=== PATIENT | male | born 1960 | race Caucasian/White ===

== ENCOUNTER 2017-10-21 19:16 | Emergency (ER) | payer SELFPAY ==
[2017-10-21] MEDS ORDERED: SODIUM CHLORIDE 0.9% (FLUSH) 10 ML SYG IV PRN (19:36)
[2017-10-21] MEDS ORDERED: ASPIRIN TABLET 325 MG TAB PO ONE (19:36)
[2017-10-21] MEDS: NITROGLYCERIN 0.4 MG 25 EA TAB SL ONE ×2 (19:40→19:45)
[2017-10-21] MEDS ORDERED: SODIUM CHLORIDE 0.9% 1000ML 1,000 ML ONE (19:51)
[2017-10-21] MEDS ORDERED: SODIUM CHLORIDE 0.9% 1000ML 1,000 ML IVS ONE (19:53)
--- NOTE | 2017-10-21 20:00 | RAD ---
EXAM DESCRIPTION: Chest,1 View CLINICAL HISTORY:57 years Male, chest pain Comparison: None FINDINGS: No focal lung consolidation. No pleural effusion. No pneumothorax. Cardiac and mediastinal silhouette is unremarkable. No acute osseous abnormality. Soft tissues are unremarkable. IMPRESSION: No acute findings. No focal lung consolidation. Electronically signed by: Lul Juarez MD 10/21/2017 7:59 PM CDT
[2017-10-21] MEDS ORDERED: SUCRALFATE 1 GM/10 ML 1 GM UD PO ONE (20:04)
[2017-10-21] MEDS ORDERED: ALUM & MAG HYDROX-SIMETHICONE 30 ML, LIDOCAINE VISCOUS 2% 15 ML PO ONE ×2 (20:04)
[2017-10-21] MEDS ORDERED: LIDOCAINE HCL 2% (MOUTH-THROAT) 15 ML UD ONE (20:46)
[2017-10-21] MEDS ORDERED: ALUM & MAG HYDROX-SIMETHICONE 30 ML UD ONE (20:46)
--- NOTE | 2017-10-21 21:03 | ED.PDOC ---
History of Present Illness - General Chief Complaint: Chest Pain/GA Stated Complaint: chest pain Time Seen by Provider: 10/21/17 19:44 Exam Limitations: no limitations - History of Present Illness Initial Comments: Jose David Brandt 57 y/o male stated that he darank about 4 galsses of seagrams whisky with sevenup at about 5-6 p tonight went to take a nap woke up andwas watching Tv had sudden onset of sharp chest pains radiating to right shoulder with pain on taking deep breaths called up ems and was brought here. Timing/Duration: 1-3 hours Severity: moderate Location: central Activities at Onset: other - see hpi Prior Chest Pain/Cardiac Workup: no prior chest pain, no prior cardiac workup Improving Factors: nothing Worsening Factors: nothing Nitro Today/Relief: 0.4 mg x 1 Aspirin Treatment Today: 325 mg x 1 Associated Symptoms: other - see hpi Allergies/Adverse Reactions: Allergies NO KNOWN ALLERGY Allergy (Verified 10/21/17 19:33) Home Medications: Ambulatory Orders NK [NK] 10/21/17 Review of Systems - Review of Systems Constitutional: States: no symptoms reported EENTM: States: no symptoms reported Respiratory: States: no symptoms reported Cardiology: States: see HPI Gastrointestinal/Abdominal: States: no symptoms reported Genitourinary: States: no symptoms reported All other Systems: Reviewed and Negative, No Change from Baseline Past Medical History (General) - Patient Medical History Hx Stroke: No Hx Congestive Heart Failure: No Hx Diabetes: No Surgical History: no surgical history - Vaccination History Hx Influenza Vaccination: No Hx Pneumococcal Vaccination: No - Social History Hx Tobacco Use: Yes Years Tobacco Use: 30 Cigarettes Packs Per Day: 10 Hx Chewing Tobacco Use: No Hx Alcohol Use: Yes - 4 beers daily Hx Physical Abuse: No Hx Emotional Abuse: No - Activities of Daily Living Patient Lives Alone: No Family Medical History - Family History Father Family History: Unknown Living Status: Unknown Physical Exam - Physical Exam General Appearance: Alert, Comfortable, No apparent distress Eyes, Ears, Nose, Throat Exam: PERRL/EOMI, normal ENT inspection Neck: non-tender, supple Respiratory: chest non-tender, lungs clear, normal breath sounds, no respiratory distress Cardiovascular/Chest: normal peripheral pulses, regular rate, rhythm, no murmur Gastrointestinal/Abdominal: normal bowel sounds, non tender, soft, no organomegaly Extremity: no pedal edema, no calf tenderness Neurologic: alert, oriented x 3 Skin Exam: warm/dry Lymphatic: no adenopathy Progress - Progress Progress: 10/21/17 21:06 Vital Signs - 8 hr 10/21/17 10/21/17 19:29 19:51 Temperature 96.3 F L Pulse Rate [ 79 Right Brachial] Respiratory 20 Rate Blood Pressure 124/81 [Right Arm] O2 Sat by Pulse 99 98 Oximetry - Results/Orders Results/Orders: 10/21/17 19:36 IV Care:Saline Lock per Protoc QSHIFT Telemetry .ONCE Sodium Chloride 0.9% (Flush) [Saline Flush Syringe] 10 ml IV PRN PRN EKG Stat Pulse Ox Stat 10/21/17 19:44 URINE DRUG SCREEN, 7 ASSAY Stat 10/21/17 21:50 EKG Assessment ONCE 10/21/17 22:00 EKG STAT Laboratory Results - last 24 hr 10/21/17 10/21/17 10/21/17 18:50 18:50 19:30 WBC 10.7 RBC 4.51 L Hgb 15.2 Hct 43.7 MCV 97.0 H MCH 33.7 H MCHC 34.7 RDW 13.4 Plt Count 154 MPV 7.9 Absolute Neuts (auto) 5.90 Absolute Lymphs (auto) 3.90 H Absolute Monos (auto) 0.50 Absolute Eos (auto) 0.20 Absolute Basos (auto) 0.10 Neutrophils % 55.2 Lymphocytes % 36.8 Monocytes % 4.8 Eosinophils % 1.9 Basophils % 1.3 ESR 7 PT 11.8 INR 1.020 PTT (SP) 34.2 D-Dimer, Quantitative < 230 Sodium 143 Potassium 3.6 Chloride 106 Carbon Dioxide 28 Anion Gap 12.6 BUN 11 Creatinine 0.85 BUN/Creatinine Ratio 12.9 Random Glucose 126 H Serum Osmolality 285.9 Calcium 9.1 Magnesium 1.9 Creatine Kinase 163 CK-MB (CK-2) 2.5 CK-MB (CK-2) % Not Reportable Troponin I < 0.02 B-Natriuretic Peptide 33.5 Ethyl Alcohol 10/21/17 10/21/17 19:30 22:00 WBC RBC Hgb Hct MCV MCH MCHC RDW Plt Count MPV Absolute Neuts (auto) Absolute Lymphs (auto) Absolute Monos (auto) Absolute Eos (auto) Absolute Basos (auto) Neutrophils % Lymphocytes % Monocytes % Eosinophils % Basophils % ESR PT INR PTT (SP) D-Dimer, Quantitative Sodium Potassium Chloride Carbon Dioxide Anion Gap BUN Creatinine BUN/Creatinine Ratio Random Glucose Serum Osmolality Calcium Magnesium Creatine Kinase CK-MB (CK-2) CK-MB (CK-2) % Troponin I < 0.02 B-Natriuretic Peptide Ethyl Alcohol 152.80 H* - EKG/XRAY/CT EKG: Sinus, no ST T wave changes Comments: HR-80 XRAY: chest - no acute changes Departure - Departure Clinical Impression: Chest pain Qualifiers: Chest pain type: unspecified Qualified Code(s): R07.9 - Chest pain, unspecified Alcohol dependence Qualifiers: Substance use status: uncomplicated Qualified Code(s): F10.20 - Alcohol dependence, uncomplicated Disposition: Discharge to Home or Self Care Departure Forms: ED Discharge - Pt. Copy, Patient Portal Self Enrollment Instructions: DI for Chest Pain, DI for Alcohol Abuse and Alcoholism, Growing Up Sober: A Challenging Journey for Adult Children of Alcoholics, Alcohol Abuse and Alcoholism Home Medications: Ambulatory Orders NK [NK] 10/21/17 Additional Instructions: Return To ER as needed; Over the counter medications-Take Zantac(Ranitidine)75 mg-2 tablets am/pm;Multi vitamin [id number] tablet daily;Need to sign up with primary Md
[2017-10-21] MEDS ORDERED: PANTOPRAZOLE SODIUM IV 40 MG VIAL IV ONE (21:15)
[2017-10-21 23:00] VITALS: TEMP 98; O2SAT 96
[2017-10-21 23:27] VITALS: BP 129/88
== END 2017-10-21 23:17 | disposition home or self-care (01) ==
LOC: ER 19:16
DX: R07.9 Chest pain, unspecified (principal); F10.229 Alcohol dependence with intoxication, unspecified; Y90.6 Blood alcohol level of 120-199 mg/100 ml; Z87.891 Personal history of nicotine dependence
CPT/HCPCS: 36415; 71045; 80048; 80320; 82550; 82553; 83880; 84484; 85025; 85379; 85610; 85651; 85730; 93005; 94760; J7030